=== PATIENT | female | born 1995 | race Caucasian/White ===

== ENCOUNTER 2016-08-09 18:51 | Emergency (ER) | payer BC ==
[~2016-08-09] VITALS: Ht 152.4 cm; Wt 66.5 kg
[~2016-08-09 18:51] MED LIST: AMO500 PO; IBUP-1542 PO; NPH10OT LEFT EAR
[2016-08-09 19:00] VITALS: Ht 152.4 cm; Wt 66.5 kg
[2016-08-09] MEDS ORDERED: KETOROLAC 15 MG INJ IV STA (19:49)
[2016-08-09] MEDS ORDERED: METOCLOPRAMIDE 10 MG INJ IV ONE (20:00)
[2016-08-09] MEDS ORDERED: SOD CHLORIDE 0.9% 1,000 ML IV ONE (20:00)
[2016-08-09] MEDS ORDERED: DIPHENHYDRAMINE 50 MG INJ IV ONE (20:00)
[2016-08-09] MEDS ORDERED: NAPR-260 PO (20:50)
[2016-08-09] MEDS ORDERED: ONDA4TAB8 PO (20:51)
[2016-08-09 21:06] VITALS: BP 105/65; PULSE 60; RESP 16
--- NOTE | 2016-08-09 23:16 | ERD ---
ER Documentation Chief Complaint Date/Time DATE: 08/09/16 TIME: 23:13 Chief Complaint Pt with L sided SALMON, and vomiting X 2 hours. HPI Patient is a 21-year-old female with a history of chronic sinusitis and headache who presents to the ED with headache and left facial pain. She states that she has had this pain for the last couple of years. She denies stating that this is a new onset headache or new onset symptoms. This is similar to what she has experienced in the past. She states that she is being followed by an ENT specialist regarding her headaches and facial pain. She states that she was diagnosed with chronic sinusitis and is currently taking prednisone and another medication that she is unsure of. She also states that she was nauseous and vomited nonbloody nonbilious. She denies dizziness. Denies neck pain or stiffness. Denies abdominal pain, diarrhea or constipation. Denies leg pain or swelling. Denies blurry vision or difficulty hearing. ROS All systems reviewed and are negative except as per history of present illness. Medications Home Meds Active Scripts Ondansetron Hcl* (Zofran*) 4 Mg Tablet, 4 MG PO Q6H for NAUSEA AND/OR VOMITING, #30 TAB Prov:KEITH ROBLEDO PA-C 08/09/16 Naproxen* (Naprosyn*) 500 Mg Tablet, 500 MG PO BID Y for PAIN AND/OR INFLAMMATION, #30 TAB Prov:KEITH ROBLEDO PA-C 08/09/16 Ibuprofen* (Motrin*) 600 Mg Tab, 600 MG PO Q6H Y for PAIN AND OR ELEVATED TEMP, #30 TAB Prov:LUDMILA WILLINGHAM NP 10/30/15 Amoxicillin* (Amoxicillin*) 500 Mg Cap, 500 MG PO TID for 10 Days, CAP Prov:LUDMILA WILLINGHAM NP 10/30/15 Neomycin/Polymyxin/Hydrocort* (Cortisporin* Otic) 10 Ml Susp, 4 DROP LEFT EAR QID for 7 Days, EA Prov:LUDMILA WILLINGHAM NP 10/30/15 Allergies Allergies: Coded Allergies: No Known Allergy (Unverified , 10/30/15) PMhx/Soc Medical and Surgical Hx: pt denies Surgical Hx History of Surgery: No Anesthesia Reaction: No Hx Neurological Disorder: No Hx Respiratory Disorders: No Hx Cardiac Disorders: No Hx Psychiatric Problems: No Hx Miscellaneous Medical Probl: Yes (Chronic Sinusitis, headache) Hx Alcohol Use: No Hx Substance Use: No Hx Tobacco Use: No Smoking Status: Never smoker FmHx Family History: No coronary disease, No diabetes, No other Physical Exam Vitals Vital Signs Date Time Temp Pulse Resp B/P Pulse Ox O2 Delivery O2 Flow Rate FiO2 08/09/16 21:06 60 16 105/65 100 Room Air 08/09/16 19:00 97.8 58 16 110/56 96 Physical Exam GENERAL: Well-developed, well-nourished female. Appears in no acute distress. HEAD: Normocephalic, atraumatic. EYES: Pupils are equally reactive bilaterally. EOMs grossly intact. No conjunctival erythema. ENT: Moist mucous membranes. No uvula deviation. No kissing tonsils. No exudates. NECK: Supple. No lymphadenopathy or thyromegaly. No meningismus. negative kernig. negative brudinski. LUNG: Clear to auscultation bilaterally. No rhonchi, wheezing, rales or coarse breath sounds. HEART: Regular rate and rhythm. No murmurs, rubs or gallops. Extremities: Equal pulses bilaterally. No peripheral clubbing, cyanosis or edema. No unilateral leg swelling. NEUROLOGIC: Alert and oriented. Moving all four extremities. 5/5 strength in all extremities. Normal speech. Steady gait. Cranial nerves II through XII intact SKIN: Normal color. Warm and dry. No rashes or lesions. Capillary refill < 2 seconds Results 24 hrs Current Medications Medications (Trade) Dose Ordered Sig/Raghav Route PRN Reason Start Time Stop Time Status Last Admin Dose Admin Sodium Chloride (NS) 1,000 ml @ 1,000 mls/hr Q1H ONCE IV 08/09/16 20:00 08/09/16 20:59 DC 08/09/16 20:24 Ketorolac Tromethamine (Toradol) 15 mg ONCE STAT IV 08/09/16 19:49 08/09/16 19:51 DC 08/09/16 20:18 Diphenhydramine HCl (Benadryl) 25 mg ONCE ONCE IV 08/09/16 20:00 08/09/16 20:01 DC 08/09/16 20:18 Metoclopramide HCl (Reglan) 5 mg ONCE ONCE IV 08/09/16 20:00 08/09/16 20:01 DC 08/09/16 20:18 Procedures/MDM ER COURSE: I kept the patient and/or family informed of laboratory and diagnostic imaging results throughout the emergency room course. PROCEDURES IV fluids, Toradol, Reglan and Benadryl. Tolerated well with no adverse reaction and stated improvement in symptoms. MEDICAL DECISION MAKING: This is a 21-year-old female who presents with chronic headache and facial pain. Vital signs were reviewed. Patient is afebrile. Patient is not hypoxic. Patient is not toxic or ill-appearing. I did discuss risks versus benefits of a CT scan. CT scan was done 2 years ago and was unremarkable except for chronic sinusitis. Patient did not want another CT scan. Her neuro exam was within normal limits. I reexamined patient after medication fluids, patient stated improvement in symptoms and wanted to leave before fluids were finished. She felt much better. Low suspicion for intracranial hemorrhage, meningitis, intracranial mass, concussion, temporal arteritis, stroke, elevated intracranial pressure, seizure. DISCHARGE: At this time, patient is stable for discharge and outpatient management with no new complaints during the ER course. Patient was sent home with Naprosyn for pain and Zofran for nausea and to follow-up with her ENT doctor this week for further evaluation.. Patient will be discharged home with instructions to recheck for new or worsening symptoms such as fever, nausea, weakness, LOC and to follow up with primary care in the next 1-2 days. Patient was advised to return to the ER for any new or worsening symptoms. Plan was discussed and patient and/or family understands and agrees. Home instructions were given. Departure Diagnosis: Primary Impression: Headache Headache type: unspecified Headache chronicity pattern: unspecified pattern Intractability: not intractable Qualified Code: R51 - Nonintractable headache, unspecified chronicity pattern, unspecified headache type Condition: Stable Patient Instructions: Self-Care for Headaches Additional Instructions: Call your primary care doctor TOMORROW for an appointment during the next 1-2 days.See the doctor sooner or return here if your condition worsens before your appointment time. KEITH ROBLEDO PA-C Aug 09, 2016 23:16
== END 2016-08-09 21:06 | disposition home or self-care (01) ==
LOC: FTE 18:51
DX: R51 Headache (principal); R11.10 Vomiting, unspecified
CPT/HCPCS: J1200; J1885; J2765; J7030; 96374; 96375

== ENCOUNTER 2016-09-12 22:36 | Emergency (ER) | payer BC ==
[~2016-09-12] VITALS: Ht 162.6 cm; Wt 68.5 kg
[~2016-09-12 22:36] MED LIST changes: +NAPR-260 PO; +ONDA4TAB8 PO
[2016-09-12 22:41] VITALS: Ht 162.6 cm; Wt 68.5 kg
[2016-09-12] MEDS ORDERED: IBUPROFEN 200 MG TAB PO ONE (23:30)
--- NOTE | 2016-09-13 00:05 | RADRPT ---
PROCEDURE: XR Cervical Spine. CLINICAL INDICATION: Post traumatic neck pain TECHNIQUE: AP, lateral, and odontoid views of the cervical spine were obtained. COMPARISON: None available FINDINGS: Mineralization is within normal limits. No fracture or osseous lesion is identified. Vertebral bod ies are normal in height. Cervical lordosis is reversed. No vertebral subluxation is seen. Interv ertebral discs are normal in height. Facet joints appear maintained. Prevertebral soft tissues, pr edental space and atlantoaxial joint are unremarkable. RPTAT:HJJR IMPRESSION: 1. Reversal of the normal cervical lordosis cannot exclude muscle spasm. 2. No evidence of cervical spine fracture or subluxation. Physician Afshan Date Time Electronically viewed and signed by Physician Afshan on 09/13/2016 00:05 /
--- NOTE | 2016-09-13 00:21 | ERA ---
ER Documentation Chief Complaint Date/Time DATE: 09/13/16 TIME: 00:13 Chief Complaint neck pain x 1 month HPI Patient is a 21-year-old female complains of gradual onset neck pain. Pain is worsened over the past 12 hours. Patient describes difficulty turning head left and right. Patient denies fever, headache, change in vision, cough, nausea , vomiting, diarrhea, dysuria, hematuria, pharyngitis. Patient's for symptoms started roughly 1 month ago. Patient denies any other symptoms. Patient has no medical history. Has not taken any medication to improve the symptoms. ROS All systems reviewed and are negative except as per history of present illness. Medications Home Meds Active Scripts Ondansetron Hcl* (Zofran*) 4 Mg Tablet, 4 MG PO Q6H for NAUSEA AND/OR VOMITING, #30 TAB Prov:KEITH ROBLEDO PA-C 08/09/16 Naproxen* (Naprosyn*) 500 Mg Tablet, 500 MG PO BID Y for PAIN AND/OR INFLAMMATION, #30 TAB Prov:KEITH ROBLEDO PA-C 08/09/16 Ibuprofen* (Motrin*) 600 Mg Tab, 600 MG PO Q6H Y for PAIN AND OR ELEVATED TEMP, #30 TAB Prov:LUDMILA WILLINGHAM NP 10/30/15 Amoxicillin* (Amoxicillin*) 500 Mg Cap, 500 MG PO TID for 10 Days, CAP Prov:LUDMILA WILLINGHAM NP 10/30/15 Neomycin/Polymyxin/Hydrocort* (Cortisporin* Otic) 10 Ml Susp, 4 DROP LEFT EAR QID for 7 Days, EA Prov:LUDMILA WILLINGHAM NP 10/30/15 Allergies Allergies: Coded Allergies: No Known Allergy (Unverified , 10/30/15) PMhx/Soc Medical and Surgical Hx: pt denies Medical Hx, pt denies Surgical Hx History of Surgery: No Anesthesia Reaction: No Hx Neurological Disorder: No Hx Respiratory Disorders: No Hx Cardiac Disorders: No Hx Psychiatric Problems: No Hx Miscellaneous Medical Probl: Yes (Chronic Sinusitis, headache) Hx Alcohol Use: No Hx Substance Use: No Hx Tobacco Use: No Smoking Status: Never smoker Physical Exam Vitals Vital Signs Date Time Temp Pulse Resp B/P Pulse Ox O2 Delivery O2 Flow Rate FiO2 5/12/17 22:41 98.4 84 20 127/72 100 Physical Exam Const: Obese 21-year-old female Head: Atraumatic Eyes: Normal Conjunctiva ENT: Normal External Ears, Nose and Mouth. Neck: Full range of motion..~ No meningismus. Decreased range of motion looking to left and right. 30 left and 45 left and right. Restricted range of motion secondary to pain. Passive range of motion is intact. Negative Kernig's and Brudzinski sign. No palpable masses felt. All other range of motions are intact. Resp: Clear to auscultation bilaterally Cardio: Regular rate and rhythm, no murmurs Abd: Soft, non tender, non distended. Normal bowel sounds Skin: No petechiae or rashes Back: No midline or flank tenderness Ext: No cyanosis, or edema Neur: Awake and alert Psych: Normal Mood and Affect Results 24 hrs Current Medications Medications (Trade) Dose Ordered Sig/Raghav Route PRN Reason Start Time Stop Time Status Last Admin Dose Admin Ibuprofen (Motrin) 400 mg ONCE ONCE PO 09/12/16 23:30 09/12/16 23:31 DC Procedures/MDM Patient's 19-year-old female with a chief complaint of neck pain. Pain started roughly 1 month ago. I have very low suspicion for meningitis due to the duration and lack of constitutional symptoms. Patient's pain is worsened over the past 12 hours and denies any trauma to the ear. We will go ahead and get an x-ray due to sudden increase in pain. X-ray results were as follows: 1. Reversal of the normal cervical lordosis cannot exclude muscle spasm. 2. No evidence of cervical spine fracture or subluxation. We will go ahead and discharge the patient with ibuprofen and will suggest to follow-up with PCP. Departure Diagnosis: Primary Impression: Cervical paraspinal muscle spasm Condition: Stable Additional Instructions: Follow up with your PCP within the next 1-3 days for a more thorough evaluation and a possible referral to a specialist. Return the the emergency department immediately if symptoms worsen or change. If you have any questions regarding medications, ask your pharmacist or us before you leave. If any adverse reactions occur while taking your medications, discontinue the treatment and return to the emergency department immediately. Take your medications as directed, and complete the entire course of treatment. QUINTEN GARNER PA-C September 13, 2016 00:21
[2016-09-13] MEDS ORDERED: IBUP-1542 PO (00:23)
[2016-09-13 01:28] VITALS: PULSE 80; RESP 18; TEMP 97.8
== END 2016-09-13 01:15 | disposition home or self-care (01) ==
LOC: FTE 22:36
DX: M62.838 Other muscle spasm (principal)
CPT/HCPCS: 72040; Z7502; Z7610

== ENCOUNTER 2016-10-01 14:38 | Day surgery (SDC) | payer BC ==
[~2016-10-01] VITALS: Ht 152.4 cm; Wt 67.0 kg
[2016-10-01] VITALS (8 sets, daily range): BP systolic 87–100; BP diastolic 53–60; PULSE 62–78; RESP 16–22; Ht 152.4 cm; Wt 67.0 kg
[2016-10-01] MEDS ORDERED: [UNRECOGNIZED DRUG - OTHER] PO (15:45)
[2016-10-01] MEDS ORDERED: PROBIOTIC (15:46)
[2016-10-01] MEDS ORDERED: IRON (15:46)
[2016-10-01] MEDS ORDERED: MAGNESIUM (15:47)
--- NOTE | 2016-10-01 16:02 | HPN ---
Date/Time of Note Date/Time of Note DATE: 10/01/16 TIME: 16:02 Interval H&P Admission Note Pt. seen H&P reviewed: No system changes ANUPAMA JIMENEZ October 01, 2016 16:02
[2016-10-01] MEDS ORDERED: POVIDONE IODINE 10% 28.4 GM OINT ONE (16:52)
[2016-10-01] MEDS ORDERED: BUPIVACAINE 0.5% (SDV) 30 ML INJ ONE (16:52)
[2016-10-01] MEDS ORDERED: MIDAZOLAM 1 MG/ML 2 ML INJ ONE (17:11)
[2016-10-01] MEDS ORDERED: PROPOFOL 20 ML ONE (17:15)
[2016-10-01] MEDS ORDERED: CEFAZOLIN 1 GM INJ ONE (17:17)
[2016-10-01] MEDS ORDERED: FENTAnyl 50 MCG/ML VIAL ONE (17:19)
[2016-10-01] MEDS ORDERED: LIDOCAINE 1% (STERILE-PAK) 30 ML INJ ONE (17:24)
[2016-10-01] MEDS ORDERED: KETOROLAC 30 MG INJ ONE (17:38)
[2016-10-01] MEDS ORDERED: METOCLOPRAMIDE 10 MG INJ IV PRN (18:00)
[2016-10-01] MEDS ORDERED: OXYCODONE/ACETAMINOPHEN (5/325) TAB PO PRN ×2 (18:00)
[2016-10-01] MEDS ORDERED: HYDROmorphONE (0.2 MG/ML) 10ML SYG IV PRN ×3 (18:00)
[2016-10-01] MEDS ORDERED: DIPHENHYDRAMINE 50 MG INJ IV PRN (18:00)
[2016-10-01] MEDS ORDERED: MEPERIDINE 25 MG INJ IV PRN (18:00)
[2016-10-01] MEDS ORDERED: ONDANSETRON 4 MG INJ IV PRN (18:00)
--- NOTE | 2016-10-01 18:24 | OPR ---
DATE OF OPERATION: 10/01/2016 SURGEON: ANUPAMA JIMENEZ MD. ANESTHESIA: MAC plus local. PREOPERATIVE DIAGNOSIS: Right wrist dorsal ganglion. POSTOPERATIVE DIAGNOSIS: Right wrist dorsal ganglion. PROCEDURE: Excision of right wrist dorsal ganglion. OPERATIVE FINDINGS: Right dorsal wrist ganglion originating from the scapholunate interval. INDICATION FOR PROCEDURE: A 21-year-old female with longstanding bilateral wrist painful cyst. She failed conservative management and elected to proceed with surgery on the right side, understanding the risks and benefits. DESCRIPTION OF PROCEDURE: The patient was seen in the preoperative area and all further questions w ere answered. Again, she gave informed consent understanding risks and benefits. She was taken to the operative suite and placed in supine position. Sedation was given as was Ancef 2 grams. Right upper extremity was prepped with ChloraPrep stick and draped in usual sterile fashion. A sterile to urniquet was placed and the right upper extremity was exsanguinated and tourniquet inflated to 250 m mHg. A 13 mL volume of 0.5% Marcaine plus 1% lidocaine was injected around the surgical site for lo soren block. Sharp dissection was carried down through skin and subcutaneous tissue with a transverse type incision centered over the cyst. The fourth dorsal compartment extensors were identified and were retracted ulnarly. The EPL sheath was identified and incised along the EPL tendon and the EPL tendon was retracted radially. The dorsal wrist capsule was visualized and was incised longitudinal ly directly over the cyst. The cyst was visualized and was tracking down to the scapholunate interv al. The cyst was excised along with a portion of the dorsal wrist capsule. The scapholunate interv al was gently cauterized with Bovie electrocautery. The ligament itself was intact. The midcarpal capsule was also cauterized with Bovie electrocautery. Wound was copiously irrigated and skin close d with 4-0 nylon. Xeroform placed over the wound followed by sterile gauze, Webril and a short arm splint. The cyst was sent for specimen. The patient was awakened from anesthesia and taken to the postoperative suite in stable condition and tolerated procedure well without complication. SPECIMENS: Right wrist dorsal ganglion. ESTIMATED BLOOD LOSS: 5 mL. COUNTS: Sponge, instrument, needle counts correct. TOURNIQUET TIME: 14 minutes. CONDITION ON DISCHARGE: Stable. Dictated By: ANUPAMA NOEL/JOAO Conf#: [id number] DID#: [id number]
[2016-10-01] MEDS ORDERED: HYDROCODONE/APAP (5/325) TAB PO PRN (19:00)
== END 2016-10-01 19:10 | disposition home or self-care (01) ==
LOC: SDS 14:38
PROVIDERS: ATTEND Orthopaedic Surgery Hand Surgery
DX: M67.431 Ganglion, right wrist (principal)
CPT/HCPCS: 25111; 88304; J0690; J1885; J2250; J3010; Z7512; Z7610

== ENCOUNTER 2016-12-03 13:10 | Day surgery (SDC) | payer BC ==
[2016-12-03] VITALS (12 sets, daily range): BP systolic 95–108; BP diastolic 51–66; PULSE 54–74; RESP 11–25; Ht 152.4 cm; Wt 64.0 kg
[~2016-12-03] VITALS: Ht 152.4 cm; Wt 64.0 kg
[~2016-12-03 13:10] MED LIST changes: +IRON; +LACTATED RINGER'S 1,000 ML IV* SCH; +MAGNESIUM; +PROBIOTIC; +[UNRECOGNIZED DRUG - OTHER] PO
[2016-12-03] MEDS ORDERED: POVIDONE IODINE 10% 28.4 GM OINT ONE (14:54)
[2016-12-03] MEDS ORDERED: BUPIVACAINE 0.5% (SDV) 30 ML INJ ONE (14:54)
[2016-12-03] MEDS ORDERED: ONDANSETRON 4 MG INJ ONE (15:13)
[2016-12-03] MEDS ORDERED: METOCLOPRAMIDE 10 MG INJ ONE (15:13)
[2016-12-03] MEDS ORDERED: LIDOCAINE 2% (SDV) 5 ML INJ ONE (15:13)
[2016-12-03] MEDS ORDERED: PROPOFOL 20 ML ONE (15:13)
[2016-12-03] MEDS ORDERED: CEFAZOLIN 1 GM INJ ONE (15:13)
--- NOTE | 2016-12-03 15:15 | HPN ---
Date/Time of Note Date/Time of Note DATE: 12/03/16 TIME: 15:15 Interval H&P Admission Note Pt. seen H&P reviewed: No system changes ANUPAMA JIMENEZ Dec 03, 2016 15:15
[2016-12-03] MEDS ORDERED: HYDROmorphONE (0.2 MG/ML) 10ML SYG IV PRN ×3 (16:00)
[2016-12-03] MEDS ORDERED: FENTAnyl 50 MCG/ML VIAL IV PRN ×2 (16:00)
[2016-12-03] MEDS ORDERED: DIPHENHYDRAMINE 50 MG INJ IV PRN (16:00)
[2016-12-03] MEDS ORDERED: ONDANSETRON 4 MG INJ IV PRN (16:00)
[2016-12-03] MEDS ORDERED: MEPERIDINE 25 MG INJ IV PRN (16:00)
[2016-12-03] MEDS ORDERED: MIDAZOLAM 1 MG/ML 2 ML INJ IV PRN (16:00)
[2016-12-03] MEDS ORDERED: OXYCODONE/ACETAMINOPHEN (5/325) TAB PO PRN ×2 (16:00)
[2016-12-03] MEDS ORDERED: METOCLOPRAMIDE 10 MG INJ IV PRN (16:00)
--- NOTE | 2016-12-03 16:02 | OPPN ---
Date/Time of Note Date/Time of Note DATE: 12/03/16 TIME: 16:00 Operative Report Preoperative Diagnosis left dorsal wrist ganglion Postoperative Diagnosis left dorsal wrist ganglion Operation/Procedure Performed excision of left dorsal wrist ganglion Provider: ANUPAMA JIMENEZ Anesthesia: general Estimated blood loss: 0 - 10 ml's Specimens left dorsal wrist ganglion Grafts/Implants none Complications: None ANUPAMA JIMENEZ Dec 03, 2016 16:01
[2016-12-03] MEDS: FENTAnyl 50 MCG/ML VIAL IV PRN ×2 (16:08→16:15)
[2016-12-03] MEDS ORDERED: HYDROCODONE/APAP (5/325) TAB PO PRN (16:30)
--- NOTE | 2016-12-03 18:56 | OPR ---
DATE OF OPERATION: 12/03/2016 SURGEON: Danial Hunter MD ANESTHESIA: General. PREOPERATIVE DIAGNOSIS: Left wrist dorsal ganglion. POSTOPERATIVE DIAGNOSIS: Left wrist dorsal ganglion. PROCEDURE: Excision of left wrist dorsal ganglion. OPERATIVE FINDINGS: Left wrist dorsal ganglion arising from the scapholunate interval. INDICATION FOR PROCEDURE: A 21-year-old female with longstanding left wrist pain. She failed conservative management and elected to proceed with excision of her ganglion understanding the risks, benefits. DESCRIPTION OF PROCEDURE: The patient was seen in the preoperative area and all further questions were answered. Again, she gave informed consent understanding risks, benefits. She was taken to the operative suite and placed in the supine position. She was placed under general anesthesia and tourniquet placed on left upper extremity. Ancef 2 g given and the left upper extremity was prepped with ChloraPrep stick and draped in usual sterile fashion. Esmarch bandage was used to exsanguinate the extremity and tourniquet inflated to 250 mmHg. A transverse incision within Colleen's lines on the dorsal wrist was utilized with sharp dissection and carried down through skin and subcutaneous tissue. The extensor retinaculum was visualized and the EPL sheath was incised and the EPL tendon retracted radially. The 2nd dorsal compartment was incised and the 2nd dorsal compartment tendons retracted radially. The 4th dorsal compartment was elevated off of the dorsal wrist capsule and the dorsal wrist ganglion was directly visualized. The ganglion was then dissected down circumferentially to the origin at the scapholunate ligament. The ganglion and a portion of the dorsal wrist capsule was excised. The scapholunate ligament was contoured with smooth edges and Bovie electrocautery was used to cauterize all dorsal capsular bleeders. The wound was copiously irrigated and skin closed with 5-0 nylon. Xeroform placed over the wound followed by sterile gauze, Webril, and a short-arm splint. Tourniquet deflated after 15 minutes and the patient was awakened by anesthesia. She was taken to the postoperative suite in stable condition and tolerated the procedure well without complication. SPECIMEN: Left wrist dorsal ganglion. ESTIMATED BLOOD LOSS: 5 cc. COUNTS: Sponge, instrument, and needle counts correct. TOURNIQUET TIME: 15 minutes. CONDITION ON DISCHARGE: Stable. Dictated By: Danial Hunter MD /fnt/leandrac /Document#: [id number] MTDD
== END 2016-12-03 17:50 | disposition home or self-care (01) ==
LOC: SDS 13:10
PROVIDERS: ATTEND Orthopaedic Surgery Hand Surgery
DX: M67.432 Ganglion, left wrist (principal)
CPT/HCPCS: 25111; 88304; J0690; J2175; J2405; J2765; J3010; Z7512; Z7610

== ENCOUNTER 2017-01-12 19:15 | Emergency (ER) | payer BC ==
[~2017-01-12] VITALS: Ht 152.4 cm; Wt 63.6 kg
[2017-01-12 19:37] VITALS: Ht 152.4 cm; Wt 63.6 kg
--- NOTE | 2017-01-12 21:02 | RADRPT ---
PROCEDURE: Noncontrast CT Head. CLINICAL INDICATION: Headache TECHNIQUE: Noncontrast CT of the head was obtained. The administered radiation dose was CTDI vol = 34.27 mGy, DLP = 669.78 mGy-cm. One or more of the following dose reduction techniques were used: Au tomated exposure control, Adjustment of the mA and/or kV according to patient size, or Use of iterat denise reconstruction technique. COMPARISON: There are no similar studies submitted for comparison. FINDINGS: There is no acute intracranial hemorrhage, midline shift, or mass effect. No abnormal extra-axial co llection is seen. The cerebral mireles-white matter differentiation appears preserved. The cerebral sulci and ventricles are within normal limits in size and configuration for patient's a ge. The brainstem and cerebellum are grossly unremarkable, although suboptimally evaluated with CT secon christopher to beam-hardening artifact. The basal cisterns are preserved. The visualized paranasal sinuses and mastoid air cells are clear. No acute fracture or suspicious osseous lesion is identified. IMPRESSION: No evidence of an acute intracranial process. Unremarkable noncontrast CT of the brain. RPTAT: AA Physician Oumou Date Time Electronically viewed and signed by Physician Oumou on 01/12/2017 21:02 EDIE/
[2017-01-12 21:34] LABS: ABNORMAL IP MESSAGE 1; BASOPHILS % 0.1 % (0.0-2.0); HEMATOCRIT 40.8 % (37.0-47.0); LYMPHOCYTES # 0.6 10^3/ul (0.8-2.9); LYMPHOCYTES % 7.3 % (15.0-51.0); MEAN CORPUSCULAR HGB CONC 34.3 g/dl (32.0-37.0); MEAN CORPUSCULAR VOLUME 84.5 fl (82.0-101.0); MEAN PLATELET VOLUME 9.9 fl (7.4-10.4); MONOCYTE # 0.3 10^3/ul (0.3-0.9); NEUTROPHILS % 88.3 % (39.0-77.0); PLATELET COUNT 231 10^3/UL (140-415); RED BLOOD COUNT 4.83 10^6/ul (4.20-5.40); RED CELL DISTRIBUTION WIDTH 12.3 % (11.5-14.5); WHITE BLOOD COUNT 7.5 10^3/ul (4.8-10.8)
[2017-01-12 21:36] LABS: POSITIVE DIFF @See below
[2017-01-12 21:49] LABS: ADD UMIC YES; UR ASCORBIC ACID NEGATIVE (NEGATIVE); UR BACTERIA FEW /HPF (NONE SEEN); UR BILIRUBIN (Dip) NEGATIVE (NEGATIVE); UR BLOOD (Dip) 2+ mg/dL (NEGATIVE); UR CLARITY CLEAR (CLEAR); UR COLOR STRAW (YELLOW); UR GLUCOSE (Dip) NEGATIVE (NEGATIVE); UR KETONES (Dip) 1+ mg/dL (NEGATIVE); UR LEUKOCYTE ESTERASE (Dip) NEGATIVE Leu/ul (NEGATIVE); UR NITRITE (Dip) NEGATIVE (NEGATIVE); UR RBC 3 /HPF (0-5); UR SPECIFIC GRAVITY (Dip) 1.008 (1.003-1.030); UR TOTAL PROTEIN (Dip) NEGATIVE (NEGATIVE); UR UROBILINOGEN (Dip) NEGATIVE (NEGATIVE)
[2017-01-12 21:53] LABS: ALBUMIN 4.4 g/dl (3.3-4.9); ALBUMIN/GLOBULIN RATIO 1.29; BILIRUBIN,INDIRECT 0.5 mg/dl (0-1.1); BILIRUBIN,TOTAL 0.5 mg/dl (0.2-1.3); CALCIUM 9.3 mg/dl (8.4-10.2); CREATININE 0.7 mg/dl (0.44-1.00); TOTAL PROTEIN 7.8 g/dl (6.1-8.1)
--- NOTE | 2017-01-12 21:56 | RADRPT ---
PROCEDURE: XR Lumbar Spine. CLINICAL INDICATION: Low back pain. TECHNIQUE: AP, lateral and cone-down lateral view of the lumbar spine were obtained. COMPARISON: No prior studies are available for comparison. FINDINGS: There is normal vertebral mineralization and alignment. No fracture or subluxation is seen. The disc spaces are normal in appearance. The posterior elements are unremarkable. The soft tissues appear normal. IMPRESSION: Unremarkable lumbar spine. RPTAT: [facility] Physician Tomy Date Time Electronically viewed and signed by Physician Tomy on 01/12/2017 21:56 RS/
[2017-01-12] MEDS ORDERED: LIDOCAINE/MYLANTA 40 ML BTL PO ONE (22:00)
[2017-01-12] MEDS ORDERED: HYDROCODONE/APAP (5/325) TAB PO ONE (22:00)
[2017-01-12] MEDS ORDERED: FAMOTIDINE 20 MG TAB PO ONE (22:00)
--- NOTE | 2017-01-12 22:00 | RADRPT ---
PROCEDURE: Right upper quadrant abdominal ultrasound. CLINICAL INDICATION: Abdominal pain TECHNIQUE: Mondragon scale and color doppler ultrasound images of the right upper quadrant of the abdom en. COMPARISON: None FINDINGS: Pancreas: Not visualized by the cashier general. Liver: Morphology:Normal in size. Contour:Normal, no evidence of nodularity. Echogenicity: Normal. Focal lesions:None. Main portal vein: Patent with hepatopetal flow. Biliary System: Gallbladder wall: Normal thickness. Gallstones: None. Intrahepatic bile ducts: Normal caliber. Common bile duct diameter (mm): 2.0 Kidneys: Right length (cm) : 9.5 Right cortical thickness: Normal. Echogenicity: Normal. Hydronephrosis: None. Renal calculi: None. Focal lesions: None. Free fluid/ascites: None. Abdominal aorta: Not visualized by the cashier general. Other findings: None. IMPRESSION: Normal gallbladder without gallstones. RPTAT: AADD .Trey Rogers MD, MD Date Time Electronically viewed and signed by .Trey Rogers MD, on 01/12/2017 22:00 .B/
[2017-01-12] MEDS ORDERED: FAMO-96 PO (22:32)
[2017-01-12] MEDS ORDERED: NAPR-260 PO (22:32)
--- NOTE | 2017-01-12 22:53 | ERD ---
ER Documentation Chief Complaint Date/Time DATE: 01/12/17 TIME: 22:46 Chief Complaint MID AP RADIATING TO BACK +NECK PAIN X3 HRS. +NAUSEA HPI . This is a 21-year-old female presents to the ER with multiple complaints. Patient has a past medical history of recurring headaches and is complaining of headache today. Headache is severe and throbbing in quality. Patient denies any head trauma. She denies any photophobia. She denies any vision loss or vision changes. Patient also complaining of epigastric pain with nausea. Additionally patient has left-sided upper back pain and lower back pain. Is also complaining of right-sided neck pain. Additionally she says she is very weak. Patient denies any urinary frequency or dysuria. She denies any vomiting or diarrhea. She has not had any fevers or chills. Her mother is with her and is very insistent on CT imaging of her head that she has been here 3 times for headaches and states her daughter's headaches and not getting any better. Patient denies any chest pain or shortness of breath. She has not had a recent cough or cold. ROS 12 point review of systems was done, all negative except per HPI. Medications Home Meds Active Scripts Naproxen* (Naprosyn*) 500 Mg Tablet, 500 MG PO BID Y for PAIN AND/OR INFLAMMATION, #30 TAB Prov:NOREEN SUN 01/12/17 Famotidine* (Pepcid*) 20 Mg Tablet, 20 MG PO BID for 7 Days, TAB Prov:DINONOREEN C 01/12/17 Allergies Allergies: Coded Allergies: No Known Allergy (Unverified , 12/03/16) PMhx/Soc History of Surgery: Yes (RT WRIST GANGLION CYST REMOVED) Anesthesia Reaction: No Hx Neurological Disorder: No Hx Respiratory Disorders: Yes (ASTHMA A KID) Hx Cardiac Disorders: No Hx Psychiatric Problems: No Hx Miscellaneous Medical Probl: No Hx Alcohol Use: Yes (OCC) Hx Substance Use: No Hx Tobacco Use: No Smoking Status: Never smoker Physical Exam Vitals Vital Signs Date Time Temp Pulse Resp B/P Pulse Ox O2 Delivery O2 Flow Rate FiO2 01/12/17 19:37 99.4 95 18 108/57 96 Physical Exam GENERAL: The patient is well developed and appropriate for usual state of health , in no apparent distress. HEENT: Atraumatic. Conjunctivae are pink. Pupils equal, round, and reactive to light. Extraocular muscles are grossly intact. Bilateral tympanic membranes are clear with no evidence of erythema, bulging or perforation. No sinus tenderness. NECK: C-spine is soft and supple. There is no cervical lymphadenopathy. Patient is tender to palpation along the right trapezius muscle CHEST: Clear to auscultation bilaterally. There are no rales, wheezes or rhonchi. HEART: Regular rate and rhythm. No murmurs, clicks, rubs or gallops BACK: Patient is tender to palpation along L3 through L5. No step-offs no crepitus no deformities. She is tender to palpation along the thoracic paraspinal muscles there is no tenderness to the thoracic spine. ABDOMEN: Soft nontender, nondistended. No right lower quadrant pain no right upper quadrant pain no masses no rebound no guarding EXTREMITIES: Equal pulses bilaterally. There is no peripheral clubbing, cyanosis or edema. No focal swelling or erythema. Full range of motion. Grossly neurovascularly intact. NEURO: Alert and oriented. Cranial nerves II through XII are intact. Motor strength in all 4 extremities with 5/5 strength. Sensation grossly intact. Normal speech and gait. Negative Rhomberg. +2 DTRs. SKIN: There is no apparent rash or petechia. The skin is warm and dry. Result Diagram: 01/12/17210101/12/172101 Results 24 hrs Laboratory Tests Test 01/12/17 21:02 White Blood Count 7.510^3/ul Red Blood Count 4.8310^6/ul Hemoglobin 14.0g/dl Hematocrit 40.8% Mean Corpuscular Volume 84.5fl Mean Corpuscular Hemoglobin 29.0pg Mean Corpuscular Hemoglobin Concent 34.3g/dl Red Cell Distribution Width 12.3% Platelet Count 81061^3/UL Mean Platelet Volume 9.9fl Neutrophils % 88.3% Lymphocytes % 7.3% Monocytes % 4.0% Eosinophils % 0.0% Basophils % 0.1% Nucleated Red Blood Cells % 0.0/100WBC Neutrophils # (Manual) 6.610^3/ul Lymphocytes # 0.610^3/ul Monocytes # 0.310^3/ul Eosinophils # 0.010^3/ul Basophils # 0.010^3/ul Nucleated Red Blood Cells # 0.010^3/ul Urine Color STRAW Urine Clarity CLEAR Urine pH 6.0 Urine Specific [place] 1.008 Urine Ketones 1+mg/dL Urine Nitrite NEGATIVEmg/dL Urine Bilirubin NEGATIVEmg/dL Urine Urobilinogen NEGATIVEmg/dL Urine Leukocyte Esterase NEGATIVELeu/ul Urine Microscopic RBC 3/HPF Urine Microscopic WBC 2/HPF Urine Bacteria FEW/HPF Urine Hemoglobin 2+mg/dL Urine Glucose NEGATIVEmg/dL Urine Total Protein NEGATIVEmg/dl Sodium Level 135mmol/L Potassium Level 4.0mmol/L Chloride Level 103mmol/L Carbon Dioxide Level 23mmol/L Anion Gap 13 Blood Urea Nitrogen 10mg/dl Creatinine 0.70mg/dl Glucose Level 96mg/dl Calcium Level 9.3mg/dl Total Bilirubin 0.5mg/dl Direct Bilirubin 0.00mg/dl Indirect Bilirubin 0.5mg/dl Aspartate Amino Transf (AST/SGOT) 22IU/L Alanine Aminotransferase (ALT/SGPT) 22IU/L Alkaline Phosphatase 49IU/L Total Protein 7.8g/dl Albumin 4.4g/dl Globulin 3.40g/dl Albumin/Globulin Ratio 1.29 Lipase 58U/L Current Medications Medications (Trade) Dose Ordered Sig/Raghav Route PRN Reason Start Time Stop Time Status Last Admin Dose Admin Famotidine (Pepcid) 20 mg ONCE ONCE PO 01/12/17 22:00 01/12/17 22:01 DC 01/12/17 22:10 Miscellaneous Medication (Gi Cocktail (2)) 40 ml ONCE ONCE PO 01/12/17 22:00 01/12/17 22:01 DC 01/12/17 22:10 Acetaminophen/ Hydrocodone Bitart ([place] (5/325)) 1 tab ONCE ONCE PO 01/12/17 22:00 01/12/17 22:01 DC 01/12/17 22:10 Procedures/MDM Differential Diagnosis includes but is not limited to; tension headache, migraine headache, cluster headache, sinus headache, nonspecific febrile headache, trigeminal neurologia, subdural hematoma, subarachnoid bleeding, meningitis, encephalitis. Patient is neurologically intact with no focal neurological deficits. Patient's headache is likely a migraine disorder. I advised patient that she needs to follow-up with the neurologist as these headaches have been going on for a long time. CT imaging was done as patient has been here 3 times for headaches, CT was normal. In regards to patient's epigastric pain is likely acid reflux. There is no evidence of gallbladder disease. Patient's back pain is all muscular in nature. She does not have any tenderness along the cervical or thoracic spine. She does not have a history of trauma. Patient did have some tenderness over the lumbar spine, however x- ray was completely normal. She is not anemic and does not have an elevated white blood cell count she is extremely well-appearing and afebrile. Patient is to follow-up with her primary care doctor within 1-2 days or return to ER sooner if symptoms worsen. My medical decision making shared with the parents and the patient they understand and agree with plan. Departure Diagnosis: Primary Impression: Back pain Additional Impressions: Headache Epigastric pain Condition: Stable Patient Instructions: Self-Care for Headaches, Epigastric Pain (Uncertain Cause ) Additional Instructions: Call your primary care doctor TOMORROW for an appointment during the next 1-2 days.See the doctor sooner or return here if your condition worsens before your appointment time. NOREEN SUN Jan 12, 2017 22:53
[2017-01-12 23:12] VITALS: BP 110/61; PULSE 81; RESP 16; TEMP 97.8
== END 2017-01-12 23:13 | disposition home or self-care (01) ==
LOC: FTE 19:15
DX: M54.5 Low back pain (principal); R10.13 Epigastric pain; J45.909 Unspecified asthma, uncomplicated
CPT/HCPCS: 70450; 72100; 76705; 80053; 81001; 83690; 85025; Z7502; Z7610

== ENCOUNTER 2017-01-14 14:18 | Emergency (ER) | payer BC ==
[~2017-01-14] VITALS: Wt 63.5 kg
[~2017-01-14 14:18] MED LIST changes: -AMO500 PO; +FAMO-96 PO; -IBUP-1542 PO; -IRON; -LACTATED RINGER'S 1,000 ML IV* SCH; -MAGNESIUM; -NPH10OT LEFT EAR; -ONDA4TAB8 PO; -PROBIOTIC; -[UNRECOGNIZED DRUG - OTHER] PO
[2017-01-14] MEDS ORDERED: KETOROLAC 30 MG INJ IV STA (15:35)
[2017-01-14] MEDS ORDERED: ONDANSETRON 4 MG INJ IV STA (15:35)
--- NOTE | 2017-01-14 15:41 | ERD ---
ER Documentation Chief Complaint Date/Time DATE: 01/14/17 TIME: 15:30 Chief Complaint ABD PAIN, NAUSEA, VOMITING HPI 21-year-old female presents emergency department for abdominal pain, nausea, vomiting. Was here last Thursday, ultrasound was done, head CT was done, blood works was done. Discharged with a final diagnosis of back pain, epigastric pain and was prescribed with Pepcid and Naprosyn. Patient stated that her abdominal pain did not get better, she also developed right lower abdominal sharp pain that started today. Vomited twice in the last 24 hours. Denies headache, dizziness, neck pain, throat pain, difficulty swallowing, chest pain, back pain, blood in urine, fever, chills, trauma, numbness or tingling sensation, recent travel. No known drug allergies. No past medical history. Surgical history of cyst removal to bilateral arms. Medication: Naprosyn, Pepcid. Social: Works as a behavioral therapist. Denies smoking, use of alcohol, use of illegal drugs. LMP was 1 week ago. A0. ROS All systems reviewed and are negative except as per history of present illness. Medications Home Meds Active Scripts Ondansetron Hcl* (Zofran*) 4 Mg Tablet, 4 MG PO Q8H Y for NAUSEA AND/OR VOMITING , #30 TAB Prov:ERIKAILABANDAVIANAR F 01/14/17 Dicyclomine Hcl* (Bentyl*) 10 Mg Capsule, 10 MG PO QID Y for abdominal pain, # 16 CAP Prov:ERIKAILABANDAVIANAR F 01/14/17 Naproxen* (Naprosyn*) 500 Mg Tablet, 500 MG PO BID Y for PAIN AND/OR INFLAMMATION, #30 TAB Prov:DINO,NOREEN C 01/12/17 Famotidine* (Pepcid*) 20 Mg Tablet, 20 MG PO BID for 7 Days, TAB Prov:DINO,NOREEN C 01/12/17 Allergies Allergies: Coded Allergies: No Known Allergy (Unverified , 12/03/16) PMhx/Soc History of Surgery: Yes (RT WRIST GANGLION CYST REMOVED) Anesthesia Reaction: No Hx Neurological Disorder: No Hx Respiratory Disorders: Yes (ASTHMA A KID) Hx Cardiac Disorders: No Hx Psychiatric Problems: No Hx Miscellaneous Medical Probl: No Hx Alcohol Use: Yes (OCC) Hx Substance Use: No Hx Tobacco Use: No Smoking Status: Never smoker Physical Exam Vitals Vital Signs Date Time Temp Pulse Resp B/P Pulse Ox O2 Delivery O2 Flow Rate FiO2 01/14/17 19:22 94 18 98/54 97 Room Air 01/14/17 14:24 97.6 95 17 111/61 100 Physical Exam Const: [] Head: Atraumatic Eyes: Normal Conjunctiva ENT: Normal External Ears, Nose and Mouth. Neck: Full range of motion..~ No meningismus. Resp: Clear to auscultation bilaterally Cardio: Regular rate and rhythm, no murmurs Abd: Soft, non distended. Normal bowel sounds. Patient has diffuse abdominal tenderness to palpation. Developed right-sided abdominal pain after jumping twice. Skin: No petechiae or rashes Back: No midline or flank tenderness Ext: No cyanosis, or edema Neur: Awake and alert Psych: Normal Mood and Affect Result Diagram: 01/14/17 1552 01/14/17 1552 Results 24 hrs Laboratory Tests Test 01/14/17 15:52 White Blood Count 5.510^3/ul Red Blood Count 4.9010^6/ul Hemoglobin 14.6g/dl Hematocrit 41.8% Mean Corpuscular Volume 85.3fl Mean Corpuscular Hemoglobin 29.8pg Mean Corpuscular Hemoglobin Concent 34.9g/dl Red Cell Distribution Width 11.9% Platelet Count 29817^3/UL Mean Platelet Volume 9.6fl Neutrophils % 84.3% Lymphocytes % 11.3% Monocytes % 3.8% Eosinophils % 0.0% Basophils % 0.2% Nucleated Red Blood Cells % 0.0/100WBC Neutrophils # 4.610^3/ul Lymphocytes # 0.610^3/ul Monocytes # 0.210^3/ul Eosinophils # 0.010^3/ul Basophils # 0.010^3/ul Nucleated Red Blood Cells # 0.010^3/ul Urine Color YELLOW Urine Clarity SLIGHTLY CLOUDY Urine pH 5.0 Urine Specific [place] 1.019 Urine Ketones 2+mg/dL Urine Nitrite NEGATIVEmg/dL Urine Bilirubin NEGATIVEmg/dL Urine Urobilinogen 1+mg/dL Urine Leukocyte Esterase NEGATIVELeu/ul Urine Microscopic RBC 26/HPF Urine Microscopic WBC 4/HPF Urine Squamous Epithelial Cells FEW/HPF Urine Bacteria FEW/HPF Urine Mucus FEW/HPF Urine Hemoglobin 3+mg/dL Urine Glucose NEGATIVEmg/dL Urine Total Protein 1+mg/dl Sodium Level 136mmol/L Potassium Level 3.5mmol/L Chloride Level 100mmol/L Carbon Dioxide Level 26mmol/L Anion Gap 14 Blood Urea Nitrogen 7mg/dl Creatinine 0.76mg/dl Glucose Level 90mg/dl Calcium Level 9.1mg/dl Total Bilirubin 0.4mg/dl Direct Bilirubin 0.00mg/dl Indirect Bilirubin 0.4mg/dl Aspartate Amino Transf (AST/SGOT) 34IU/L Alanine Aminotransferase (ALT/SGPT) 30IU/L Alkaline Phosphatase 51IU/L Total Protein 8.0g/dl Albumin 4.2g/dl Globulin 3.80g/dl Albumin/Globulin Ratio 1.10 Amylase Level 101U/L Lipase 47U/L Serum HCG, Qualitative NEGATIVE Current Medications Medications (Trade) Dose Ordered Sig/Raghav Route PRN Reason Start Time Stop Time Status Last Admin Dose Admin Ondansetron HCl (Zofran Inj) 4 mg ONCE STAT IV 01/14/17 15:35 01/14/17 15:39 DC 01/14/17 15:51 Ketorolac Tromethamine (Toradol) 30 mg ONCE STAT IV 01/14/17 15:35 01/14/17 15:39 DC 01/14/17 15:50 IV Flush 10 ml 10 ml STK-MED ONCE .ROUTE 01/14/17 16:42 01/14/17 16:43 DC 01/14/17 17:11 Sodium Chloride (NS) 100 ml @ ud STK-MED ONCE .ROUTE 01/14/17 16:42 01/14/17 16:43 DC 01/14/17 17:16 Iohexol (Omnipaque 300mg/ ml) 150 ml STK-MED ONCE .ROUTE 01/14/17 16:42 01/14/17 16:43 DC 01/14/17 17:16 Procedures/MDM Examination: Please see physical examination. Disease process, medical treatment was explained to the patient and family member. They verbalized understanding and agreed with the diagnostic tests, medical treatment, and follow-up care. Radiology: CT of the abdomen and pelvis with IV contrast: Multiple fluid-filled nondistended small and large bowel loops suggestive of enteritis. Otherwise unremarkable contrast-enhanced CT abdomen pelvis without acute pathology identified. Blood works: Reviewed. POC urine : Negative. Urinalysis: Reviewed. Treatment: IV insertion. Normal saline IV bolus. Toradol IV. Zofran IV. Re-evaluation: Denies headache, dizziness, blurry vision, neck pain, shoulder pain, chest pain, back pain, abdominal pain, nausea, vomiting. No episode of emesis in the emergency department. Alert and oriented 4. Speaks full and clear sentences. Respirations even and unlabored. Lung sounds clear to auscultation. Active bowel sounds. There is no right upper/right lower/ epigastric/left upper/left lower abdominal tenderness and light and deep palpation. Negative on Rovsings sign. Negative Andressa sign. Able to jump 5 times without developing right-sided abdominal pain. No peritoneal signs. Ambulatory with steady gait. No neurovascular deficits. No neurological deficits. Consultation: None. Differential diagnosis: Appendicitis versus cholecystitis versus pancreatitis versus diverticulitis versus mesenteric ischemia versus nephrolithiasis versus pyelonephritis versus gastritis versus gastroenteritis versus Crohn's disease Medical decision makin-year-old female presents emergency department for abdominal pain, nausea, vomiting. Was here last Thursday, ultrasound was done, head CT was done, blood works was done. Discharged with a final diagnosis of back pain, epigastric pain and was prescribed with Pepcid and Naprosyn. Patient stated that her abdominal pain did not get better, she also developed right lower abdominal sharp pain that started today. Vomited twice in the last 24 hours. Patient's complaint, patient's history about her complaint, my physical findings are consistent my final diagnosis of abdominal pain. Medications prescribed are the following: Bentyl. Pepcid. I informed the patient Naprosyn. Patient and family member are made aware of the side effects and adverse reactions of the medications prescribed. Instructed on when to seek emergent and medical attention in case allergic/anaphylactic reactions or severe side effects and or adverse reactions to medications. Patient and family member verbalized understanding. Patient instructed Instructed to follow-up with his PCP in 24-48 hours. Instructed to Call 911 for chest pain, shortness of breath. Advised to come back here in ED as soon as possible for severity of symptoms which includes but not limited to: any new symptoms; shortness of breath/difficulty of breathing; cardiovascular changes; severe gastrointestinal symptoms; signs and symptoms of bleeding and or infection; signs of compartment syndrome/neurovascular changes; neurological changes/deficits. Patient and family member verbalized understanding. Upon discharge, patient is alert and oriented x 4, speaks full and clear sentences, denies pain, has no neurological deficits, has no neurovascular deficits, difficulty of breathing. Breathing even and unlabored. Lung sounds are clear to auscultation. Not in distress. Appears comfortable. Ambulatory with steady gait. Appears satisfied with care provided here in ED. Departure Diagnosis: Primary Impression: Abdominal pain Condition: Stable Additional Instructions: Instructed to follow-up with his PCP in 24-48 hours. Instructed to Call 911 for chest pain, shortness of breath. Advised to come back here in ED as soon as possible for severity of symptoms which includes but not limited to: any new symptoms; shortness of breath/difficulty of breathing; cardiovascular changes; severe gastrointestinal symptoms; signs and symptoms of bleeding and or infection; signs of compartment syndrome/neurovascular changes; neurological changes/deficits. Patient and family member verbalized understanding. FRANCHESCA CAMARGO Jan 14, 2017 15:41
[2017-01-14 16:14] LABS: BASOPHILS % 0.2 % (0.0-2.0); HEMATOCRIT 41.8 % (37.0-47.0); HEMOGLOBIN 14.6 g/dl (12.0-16.0); LYMPHOCYTES # 0.6 10^3/ul (0.8-2.9); LYMPHOCYTES % 11.3 % (15.0-51.0); MEAN CORPUSCULAR HEMOGLOBIN 29.8 pg (29.0-33.0); MEAN CORPUSCULAR HGB CONC 34.9 g/dl (32.0-37.0); MEAN CORPUSCULAR VOLUME 85.3 fl (82.0-101.0); MEAN PLATELET VOLUME 9.6 fl (7.4-10.4); MONOCYTE # 0.2 10^3/ul (0.3-0.9); MONOCYTES % 3.8 % (0.0-11.0); NEUTROPHIL # 4.6 10^3/ul (1.6-7.5); NEUTROPHILS % 84.3 % (39.0-77.0); PLATELET COUNT 174 10^3/UL (140-415); RED CELL DISTRIBUTION WIDTH 11.9 % (11.5-14.5); WHITE BLOOD COUNT 5.5 10^3/ul (4.8-10.8)
[2017-01-14 16:28] LABS: ADD UMIC YES; UR ASCORBIC ACID NEGATIVE (NEGATIVE); UR BACTERIA FEW /HPF (NONE SEEN); UR BILIRUBIN (Dip) NEGATIVE (NEGATIVE); UR BLOOD (Dip) 3+ mg/dL (NEGATIVE); UR CLARITY SLIGHTLY CLOUDY (CLEAR); UR COLOR YELLOW (YELLOW); UR GLUCOSE (Dip) NEGATIVE (NEGATIVE); UR KETONES (Dip) 2+ mg/dL (NEGATIVE); UR LEUKOCYTE ESTERASE (Dip) NEGATIVE Leu/ul (NEGATIVE); UR MUCUS FEW /HPF (NONE SEEN); UR NITRITE (Dip) NEGATIVE (NEGATIVE); UR RBC 26 /HPF (0-5); UR SPECIFIC GRAVITY (Dip) 1.019 (1.003-1.030); UR SQUAMOUS EPITHELIAL CELL FEW /HPF (FEW); UR TOTAL PROTEIN (Dip) 1+ mg/dl (NEGATIVE); UR UROBILINOGEN (Dip) 1+ mg/dL (NEGATIVE)
[2017-01-14 16:33] LABS: ALBUMIN 4.2 g/dl (3.3-4.9); ALBUMIN/GLOBULIN RATIO 1.1; BILIRUBIN,INDIRECT 0.4 mg/dl (0-1.1); BILIRUBIN,TOTAL 0.4 mg/dl (0.2-1.3); CALCIUM 9.1 mg/dl (8.4-10.2); CREATININE 0.76 mg/dl (0.44-1.00); POTASSIUM 3.5 mmol/L (3.5-5.1)
[2017-01-14] MEDS ORDERED: IOHEXOL 300MG/ML 150 ML BTL ONE (16:42)
[2017-01-14] MEDS ORDERED: SOD CHLORIDE 0.9% 100 ML ONE (16:42)
--- NOTE | 2017-01-14 17:30 | RADRPT ---
PROCEDURE: CT Abdomen and Pelvis with intravenous contrast. CLINICAL INDICATION: Abdominal pain.. Back pain. Epigastric pain. TECHNIQUE: CT scan of the abdomen and pelvis with intravenous contrast was performed on the multi- slice CT scanner. The patient was scanned following the uncomplicated intravenous administration of 100 cc of Omnipaque-300 contrast. Coronal and sagittal reformatted images were obtained from the a xial source images. Images were reviewed on a high-resolution PACS workstation. Total DLP = 3/76.1 mGy-cm. CTDIvol = 7.6 mGy. One or more of the following dose reduction techniques were used: Automated exposure control. Adjustment of the mA and/or kV according to patient size. Use of iterative reconstruction technique. COMPARISON: None. FINDINGS: CT abdomen and pelvis: The lung bases are clear. The heart size is normal in size. The liver is normal in size and densit y without focal mass or intrahepatic biliary dilatation. Slight focal fatty change seen near the fa lciform ligament. Small wedge shaped subcapsular hypodensity in the right lobe likely is artifactual from focal perfusion variation. The spleen is normal in size and homogeneous in density. The panc reas as visualized is normal. The gallbladder shows no evidence of stones or distension . The adr enal glands are normal. The kidneys are symmetrically unremarkable. No urolithiasis, obstructive u ropathy, or solid mass lesion is seen. The stomach is partially collapsed, but is grossly unremarkable. The small bowels there are nondiste nded and fluid-filled.. The colon and rectum are nondistended . Multiple fluid-filled loops of colon are also identified. The appendix is normal.. No evidence of acute appendicitis or diverticulitis. The pelvic organs are normal. The bladder is normal. There is no abdominal or pelvic adenopathy, fr ee fluid, free air, mass or mesenteric inflammation. The aorta is normal in caliber and course. The osseous structures are intact. No osteolytic or osteo blastic lesions are identified. The soft tissues are within normal limits. IMPRESSION: 1. Multiple fluid filled nondistended small and large bowel loops suggestive of enteritis. 2. Otherwise unremarkable contrast enhanced CT abdomen and pelvis without acute pathology identifie billy RPTAT: RR .Hunter Khan MD, MD Date Time Electronically viewed and signed by .Hunter Khan MD, on 01/14/2017 17:30 .L/
[2017-01-14] MEDS ORDERED: DICY10CA60 PO (18:58)
[2017-01-14] MEDS ORDERED: ONDA4TAB8 PO (19:15)
[2017-01-14 19:22] VITALS: BP 98/54; PULSE 94; RESP 18
== END 2017-01-14 19:27 | disposition home or self-care (01) ==
LOC: FTE 14:18
DX: R10.9 Unspecified abdominal pain (principal); R11.2 Nausea with vomiting, unspecified; J45.909 Unspecified asthma, uncomplicated
CPT/HCPCS: 74177; 80053; 81001; 82150; 83690; 84703; 85025; 96374; 96375; J1885; J2405; Q9967; Z7502; Z7610

== ENCOUNTER 2017-09-03 20:56 | Emergency (ER) | END 2017-09-04 01:24 | disposition home or self-care (01) ==

== ENCOUNTER 2017-09-30 07:36 | Day surgery (SDC) | END 2017-09-30 13:22 | disposition home or self-care (01) ==

== ENCOUNTER 2018-08-15 16:30 | Emergency (ER) | payer BC ==
[~2018-08-15] VITALS: Ht 152.4 cm; Wt 65.0 kg
[2018-08-15 16:31] VITALS: BP 118/66; PULSE 97; RESP 18; Ht 152.4 cm; Wt 65.0 kg
[2018-08-15] MEDS ORDERED: KETOROLAC 15 MG INJ IM STA (18:52)
[2018-08-15] MEDS ORDERED: DIAZEPAM 5 MG TAB PO ONE (19:00)
--- NOTE | 2018-08-15 19:12 | ERD ---
ER Documentation Chief Complaint Chief Complaint NECK PAIN TO THE BACK SINCE YESTERDAY HPI This is a 23-year-old female who presents to the emergency room with complaint of sharp pain in neck since yesterday. Patient states she was reaching to turn on the radio when she suddenly felt a sharp pain in her right neck radiating down into her right arm. Denies fevers, no nausea or vomiting, no vision visual disturbances, no headache. ROS All systems reviewed and are negative except as per history of present illness. Medications Home Meds Active Scripts Cyclobenzaprine Hcl* (Cyclobenzaprine Hcl*) 10 Mg Tablet, 10 MG PO QHS for 5 Days, #5 TAB Prov:CHAGO ODELL CAN SOLDERER 08/15/18 Naproxen* (Naprosyn*) 500 Mg Tablet, 500 MG PO BID PRN for PAIN AND/OR INF LAMMATION for 10 Days, #20 TAB Prov:CHAGO ODELL CAN SOLDERER 08/15/18 Allergies Allergies: Coded Allergies: No Known Allergy (Unverified , 09/30/17) PMhx/Soc History of Surgery: Yes (BILAT WRIST GANGLION CYST,TONSILLECTOMY) Anesthesia Reaction: Yes (STATES WHEN WAKING UP SHE WAS LIKE LOOSING HER BREATHE) Hx Neurological Disorder: No Hx Respiratory Disorders: No Hx Cardiac Disorders: No Hx Psychiatric Problems: No Hx Miscellaneous Medical Probl: No Hx Alcohol Use: No Hx Substance Use: No Hx Tobacco Use: No Physical Exam Vitals Vital Signs Date Temp Pulse Resp B/P (MAP) Pulse Ox O2 O2 Flow FiO2 Time Delivery Rate 08/15/18 98.3 97 18 118/66 98 16:31 (83) Physical Exam Const: No acute distress Head: Atraumatic Eyes: Normal Conjunctiva, PERRL, EOMI ENT: Normal External Ears, Nose and Mouth. Neck: ROM ltd due to tension pain. No meningismus. Tenderness over cervical spine, no swelling, normothermic, no nuchal rigidity Resp: Clear to auscultation bilaterally Cardio: Regular rate and rhythm, no murmurs Abd: Soft, non tender, non distended. Normal bowel sounds Skin: No petechiae or rashes Back: No midline or flank tenderness, no crepitus, no step-offs Ext: No cyanosis, or edema, full ROM to arms/shoulder/wrist BL Neur: Awake and alert, CN I-XII intact, equal electronic communications technician, equal smile, no pronator drift, sock lining stitcher strength 5/5 BL, left arm with dcr sensation compared to right Psych: Normal Mood and Affect Results 24 hrs Laboratory Tests Test 08/15/18 19:12 POC Beta HCG, Qualitative NEGATIVE Current Medications Medications Dose Sig/Raghav Start Time Status Last (Trade) Ordered Route PRN Stop Time Admin Dose Reason Admin Ketorolac 15 mg ONCE STAT 08/15/18 DC 08/15/18 Tromethamine IM 18:52 19:23 (Toradol) 08/15/18 18:54 Diazepam 10 mg ONCE ONCE 08/15/18 DC 08/15/18 (Valium) PO 19:00 19:22 08/15/18 19:01 Procedures/MDM This is a 23 yo female who presents with neck pain x1 day. ED COURSE: The patient was stable throughout ED course. DIAGNOSTIC IMAGING: Long discussion had with patient regarding indications for diagnostic imaging, risks of radiation, and MRI being ideal imaging modality that is not available at this time in the emergency room. As patient did not have any red flags such as fever, paresthesia, paralysis, injury, severe pain, weakness patient deciding to attempt self-care at home with understanding that if symptoms worsen she will return to the emergency room. Patient will follow up with her primary care provider tomorrow for reevaluation. MEDICATIONS GIVEN: Valium and Toradol. Patient tolerated medication well with no adverse reactions. Patient reported improvement in pain. MDM: Patient is able to ambulate to treatment area without assistance. Patient is seated on the stretcher without obvious distress. There is no surface trauma. Patient is able to stand erect. Normal flexion and extension with lateral bending and rotation without limitation. Due to patient's presentation today there is low suspicion for malignancy, infection, epidural abscess, cauda equina syndrome, herniation. Patient's musculoskeletal symptoms have stabilized while they have been evaluated in the department and are appropriate for outpatient work up. Patient is being discharged home with instructions to follow-up with primary care provider. Patient is also provided prescription for NSAID with instructions for use of heat, ice, stretching. Red flags discussed, patient verbalized understanding of signs and symptoms to return to emergency room. DISPOSITION: The patient has been discharge home to follow-up with community physician. Departure Diagnosis: Primary Impression: Neck strain Condition: Stable Patient Instructions: Back And Neck Pain, General, Exercises at Your Workstation: Eyes, Neck, and Head Referrals: [facility] Additional Instructions: Thank you very much for allowing us to participate in your care. Your health and safety is our top priority at [facility]. Call your primary care doctor TOMORROW for an appointment during the next 2-4 days and bring all the information and medications prescribed. Have prescriptions filled and follow precisely the directions on the label. If the symptoms get worse and your provider is unavailable, return to the Emergency Department immediately. FOLLOW-UP WITH YOUR PRIMARY CARE DOCTOR IN THE NEXT 2-4 DAYS. YOU MAY NEED MRI IF SYMPTOMS CONTINUE. RETURN TO THE ER WITH CHANGING OR WORSENING OF SYMPTOMS INCLUDING FEVER, WEAKNESS OF ARMS, WORSENING OF PAIN. USE NAPROSYN FOR DAYTIME COMFORT, USE FLEXERIL AT BEDTIME. USE MOIST HEAT APPLIED TO NECK 2-3 TIMES PER DAY FOR 20 MIN. PERFORM GENTLE STRETCHING EXERCISE. CHAGO ODELL NP Aug 15, 2018 19:12
[2018-08-15] MEDS ORDERED: CYCL10TA7 PO (19:14)
[2018-08-15] MEDS ORDERED: NAPR-985 PO (19:14)
== END 2018-08-15 19:27 | disposition home or self-care (01) ==
LOC: FTE 16:30
DX: S16.1XXA Strain of muscle, fascia and tendon at neck level, initial encounter (principal); X58.XXXA Exposure to other specified factors, initial encounter; Y92.9 Unspecified place or not applicable
CPT/HCPCS: 81025; 96372; J1885; Z7502; Z7610